=== PATIENT | female | born 1945 | race Caucasian/White ===

== ENCOUNTER → 2024-02-14 09:56 | Outpatient (REF) | payer MEDICARE, BC, SELFPAY | LOC: HWRAD 09:56 | PROVIDERS: ATTENDING PHYSICIAN Obstetrics & Gynecology | DX: R19.4 Change in bowel habit (principal) | CPT/HCPCS: 76830; 76856 ==

== ENCOUNTER → 2024-03-17 12:13 | Outpatient (REF) | payer MEDICARE, BC, SELFPAY | LOC: HWRAD 12:13 | PROVIDERS: ATTENDING PHYSICIAN Internal Medicine | DX: R14.0 Abdominal distension (gaseous) (principal); R10.2 Pelvic and perineal pain; K58.9 Irritable bowel syndrome, unspecified | CPT/HCPCS: 74176 ==

== ENCOUNTER → 2024-10-02 11:25 | Outpatient (REF) | payer MEDICARE, BC, SELFPAY | LOC: HWRAD 11:25 | PROVIDERS: ATTENDING PHYSICIAN Family Medicine | DX: R22.32 Localized swelling, mass and lump, left upper limb (principal) | CPT/HCPCS: 73120 ==

== ENCOUNTER → 2025-02-11 10:03 | Outpatient (REF) | payer MEDICARE, BC, SELFPAY | LOC: HWRAD 10:03 | PROVIDERS: ATTENDING PHYSICIAN Family Medicine | DX: R10.31 Right lower quadrant pain (principal) | CPT/HCPCS: 74176 ==